=== PATIENT | female | born 1975 | race Caucasian/White ===

== ENCOUNTER → 2016-11-19 22:02 | Emergency (ER) | payer OTHER ==
[2016-11-19 21:02] LABS: INFLUENZA A NEG (NEG); INFLUENZA B NEG (NEG)
[~2016-11-19 22:02] MED LIST: ALBUTEROL17 GM INH; ALPRAZOLAM PO; BACLOFEN10 MG PO; BACTRIM DS PO; BACTRIM DS TABL1 TA1 PO; BENZONATATE PO; CELEXA PO; CYMBALTA PO; DESYREL50 M1 PO; DICLOFENAC PO; DOXEPIN PO; DOXYCYCLINE HY100 M1 PO; EFFEXOR PO; FLEXERIL PO; FLEXERIL10 M1 PO; FLEXERIL10 MG PO; FLINTSTONES T100 MCG PO; HYDROCODONE-HOMA5 M1 PO; IBUPROFEN PO; IBUPROFEN800 MG PO; LEVAQUIN PO; LORTAB 5/500 TA1 TA1 PO; MEDROL PO; MOBIC PO; MOTRIN600 MG PO; NAPROSYN500 MG PO; NAPROXEN PO; NEURONTIN800 MG PO; NO MEDICATIONS; NORCO 7.5-3251 EACH PO; PAXIL PO; PHENERGAN25 MG PO; PREDNISONE PO; PRILOSEC PO; PYRIDIUM PO; ROBITUSSIN A-C S5 ML PO; RONDEC-DM SYRU120 ML PO; TESSALON200 MG PO; ULTRAM PO; VALTREX PO; VIBRAMYCIN100 M1 PO; VICODIN 5/1 TAB 5/50 PO; VICODIN 5/500 T1 TAB PO; XANAX PO; ZITHROMAX PO; ZOLOFT
== END | disposition left against medical advice (07) ==
LOC: CED 22:02
DX: Z53.21 Procedure and treatment not carried out due to patient leaving prior to being seen by health care provider (principal)
CPT/HCPCS: 87651; 87804

== ENCOUNTER → 2017-01-01 21:00 | Emergency (ER) | payer OTHER | END | disposition home or self-care (01) | LOC: CFTX 21:00 | DX: K04.7 Periapical abscess without sinus (principal); F17.210 Nicotine dependence, cigarettes, uncomplicated | CPT/HCPCS: 99282 ==

== ENCOUNTER 2017-02-10 11:42 | Emergency (ER) | payer OTHER ==
--- NOTE | ~2017-02-10 | CR63 ---
[facility]. [facility] A Service of [facility] RADIOLOGY TEXT RESULTS PATIENT: JEROME COLLINS LOCATION: SED : 71 UNIT #: [id number] AGE: [address]: NEW HERNANDEZ SEX: F ORDER DR: [id number] [address] [address] [id number] E MR#: [id number] Acc #: [id number] NAME: JEROME COLLINS : 1975 SEX: F STUDY DATE/TIME: 02/10/2017 12:20 UNIT: SED ROOM: STUDY DESCRIPTION: CR Chest 2 View Attending Physician: New Hernandez Ordering Physician: New Hernandez Primary Care Physician: Jourdan Liu M.D. MEDICAL IMAGING REPORT This report is preliminary unless electronic signature is present. EXAM Chest, 2 views, 02/10/2017, 1220 hours. CLINICAL HISTORY 41-year-old complaining of cough, nausea, body aches, toothache and weakness for 2 days. COMPARISON 05/06/2015 FINDINGS Upright PA and lateral views of the chest demonstrate normal cardiac, mediastinal, and hilar contours. The lungs are well expanded and clear. There is no effusion or pneumothorax. IMPRESSION Normal two-view chest exam. Dictated by... Nannette Pollard M.D. THIS IS AN ELECTRONICALLY VERIFIED REPORT Nannette Pollard M.D. at 02/10/2017 2:27 PM JOLYNN/cherelle TD: 02/10/2017 14:16 JOB #: [id number] MEDICAL IMAGING REPORT Page 1 of 1
[~2017-02-10 11:42] MED LIST changes: -PAXIL PO; -PRILOSEC PO; -XANAX PO
[2017-02-10] MEDS ORDERED: PRILOSEC PO (11:51)
[2017-02-10] MEDS ORDERED: PAXIL PO (11:52)
[2017-02-10] MEDS ORDERED: FLEXERIL PO (11:52)
[2017-02-10] MEDS ORDERED: VALTREX PO (11:52)
[2017-02-10] MEDS ORDERED: XANAX PO (11:52)
[2017-02-10 13:26] LABS: URINE SOURCE CLEAN CATCH
[2017-02-10 13:28] LABS: URINE APPEARANCE CLEAR; URINE BILIRUBIN NEG (NEG); URINE BLOOD NEG (NEG); URINE COLOR YELLOW; URINE GLUCOSE NEG (NORM); URINE KETONE NEG (NEG); URINE LEUKOCYTE ESTERASE NEG (NEG); URINE NITRATE NEG (NEG); URINE PH 8.5 (5-8); URINE PROTEIN TRACE (NEG)
[2017-02-10 13:34] LABS: MICRO INDICATED? YES
[2017-02-10 13:44] LABS: CULTURE INDICATED? YES; URINE BACTERIA 1+ (NEG); URINE RBC 0-2 /[HPF] (0-2); URINE SQUAMOUS EPITHELIAL CELL MODERATE /[HPF]; URINE WBC 0-2 /[HPF] (0-5)
== END 2017-02-10 14:24 | disposition home or self-care (01) ==
LOC: SED 11:42
PROVIDERS: Nurse Practitioner
DX: K08.89 Other specified disorders of teeth and supporting structures (principal); R11.0 Nausea; K21.9 Gastro-esophageal reflux disease without esophagitis; F41.9 Anxiety disorder, unspecified; F17.210 Nicotine dependence, cigarettes, uncomplicated; Z88.1 Allergy status to other antibiotic agents; Z79.899 Other long term (current) drug therapy
CPT/HCPCS: 71020; 81003; 87086; 94640; 99283

== ENCOUNTER 2017-03-12 23:33 | Emergency (ER) | payer OTHER ==
[~2017-03-12 23:33] MED LIST changes: +PAXIL PO; +PRILOSEC PO; +XANAX PO
== END 2017-03-13 00:04 | disposition left against medical advice (07) ==
LOC: CED 23:33
DX: Z53.21 Procedure and treatment not carried out due to patient leaving prior to being seen by health care provider (principal)